=== PATIENT | male | born 1990 | race Caucasian/White ===

== ENCOUNTER 2017-02-09 17:45 | Emergency (ER) | payer OTHER ==
[~2017-02-09 17:45] MED LIST: Lidocaine 1% with EPINEPHrine 1:100,000 20 ML MDV INFILT ONE
[2017-02-09] MEDS ORDERED: Diphtheria,Pertussis(Acell),Tetanus Vaccine 0.5 ML SDV IM ONE (18:00)
[2017-02-09] MEDS ORDERED: Ketorolac 60 MG/2 ML SDV IM ONE (18:01)
--- NOTE | 2017-02-09 18:06 | EDM.PDOC ---
ED HPI GENERAL MEDICAL PROBLEM - General Chief Complaint: Head Injury Stated Complaint: HEAD LACERATION Time Seen by Provider: 02/09/17 17:55 Source of Information: Reports: Patient History Limitations: Reports: No Limitations - History of Present Illness INITIAL COMMENTS - FREE TEXT/NARRATIVE: 27 yo male stood up into a backhoe and lacerated the top of his head. No LOC. Minimal neck pain. No nausea. Mild GERARDO. Is not cerain about the timing of his last tetanus. Onset: Today Onset Date: 02/09/17 Onset Time: 17:30 Duration: Minutes: Location: Reports: Head Severity: Moderate Improves with: Reports: None Worsens with: Reports: None Context: Reports: Other (Stood up into a piece of heavy equipment.) Associated Symptoms: Reports: Other (mild GERARDO and mild neck stiffness.). Denies : Confusion, Nausea/Vomiting, Syncope Treatments [employer]: Reports: Other (see below) (none) - Related Data Allergies Allergy/AdvReac Type Severity Reaction Status Date / Time codeine Allergy Nausea and Verified 02/09/17 17:49 Vomiting Home Meds: Home Meds NK [No Known Home Meds] 02/09/17 [History] Social & Family History - Tobacco Use Smoking Status *Q: Never Smoker Second Hand Smoke Exposure: No - Caffeine Use Caffeine Use: Reports: Coffee - Alcohol Use Days Per Week of Alcohol Use: 1 Number of Drinks Per Day: 1 Total Drinks Per Week: 1 - Recreational Drug Use Recreational Drug Use: No ED ROS GENERAL - Review of Systems Review Of Systems: See Below Constitutional: Reports: No Symptoms HEENT: Reports: No Symptoms Respiratory: Reports: No Symptoms Cardiovascular: Reports: No Symptoms Endocrine: Reports: No Symptoms GI/Abdominal: Reports: No Symptoms. Denies: Nausea, Vomiting : Reports: No Symptoms Musculoskeletal: Reports: No Symptoms Skin: Reports: No Symptoms Neurological: Reports: Headache (mild) Psychiatric: Reports: No Symptoms ED EXAM, HEAD INJURY - Physical Exam Exam: See Below Exam Limited By: No Limitations General Appearance: Alert, WD/WN, No Apparent Distress Head: Normocephalic, Scalp Lacerations Nexus Criteria: No: Posterior, Midline Cervical Tenderness, Evidence of Intoxication, Altered Level of Consciousness, Focal Neurological Deficit, Painful Distraction Injuries Eyes: Bilateral Eye: EOMI, Normal Inspection, PERRL Ears: Normal External Exam, Normal Canal, Hearing Grossly Normal, Normal TMs Nose: Normal Inspection, Normal Mucousa, No Blood Throat/Mouth: Normal Inspection, Normal Lips, Normal Teeth, Normal Gums, Normal Oropharynx, Normal Voice, No Airway Compromise Neck: Non-Tender, Full Range of Motion, Normal Alignment, Normal Inspection Respiratory: No Respiratory Distress, Lungs Clear, Normal Breath Sounds, No Accessory Muscle Use Cardiovascular: Regular Rate, Rhythm Extremities: No Evidence of Injury Neurologic: coil strapper II-XII nml As Tested, No Motor/Sensory Deficits, Alert, Normal Mood/Affect, Oriented x 3 Skin: Normal Color, Warm/Dry - Bonner Coma Score Best Eye Response (Jaqueline): (4) Open Spontaneously Best Verbal Response (Bonner): (5) Oriented Best Motor Response (Bonner): (6) Obeys Commands Bonner Total: 15 Course - Vital Signs Text/Narrative:: Adacel IM, Toradol 60 mg IM Wound cleaned per nursing. Wound anesth with 9 ml of 1% lidocaine with epi. Closure with 13 x jay jay. Hair/face washed in sink. A pressure dressing was applied to the scalp wound( 6.5 cm in length, mostly linear) as there was some bleeding present still after cleaning. Last Recorded V/S: Last Vital Signs Temp 37.2 C 02/09/17 17:51 Pulse 82 02/09/17 17:51 Resp 16 02/09/17 17:51 BP 151/76 H 02/09/17 17:51 Pulse Ox 100 02/09/17 17:51 - Orders/Labs/Meds Orders: Active Orders 24 hr Category Date Time Status Vaccines to be Administered [RC] PER UNIT ROUTINE Care 02/09/17 18:01 Active Meds: Medications Discontinued Medications Generic Name Dose Route Start Last Admin Trade Name Freq PRN Reason Stop Dose Admin Diphtheria/Tetanus/Acell Pertussis 0.5 ml 02/09/17 18:00 02/09/17 18:23 Adacel IM 02/09/17 18:01 0.5 ml .ONCE ONE Administration Ketorolac Tromethamine 60 mg 02/09/17 18:01 02/09/17 18:22 Toradol IM 02/09/17 18:02 60 mg ONETIME ONE Administration Departure - Departure Time of Disposition: 19:10 Disposition: Home, Self-Care 01 Condition: Fair Clinical Impression: Scalp laceration Qualifiers: Encounter type: initial encounter Qualified Code(s): S01.01XA - Laceration without foreign body of scalp, initial encounter - Discharge Information Forms: ED Department Discharge - My Orders Last 24 Hours: My Active Orders 02/09/17 18:01 Vaccines to be Administered [RC] PER UNIT ROUTINE - Assessment/Plan Last 24 Hours: My Active Orders 02/09/17 18:01 Vaccines to be Administered [RC] PER UNIT ROUTINE
== END 2017-02-09 19:30 | disposition home or self-care (01) ==
LOC: FB.ED 17:45
DX: S01.01XA Laceration without foreign body of scalp, initial encounter (principal); Z88.5 Allergy status to narcotic agent; W22.8XXA Striking against or struck by other objects, initial encounter
CPT/HCPCS: 90471; 90715; 96372; 99282; A4217; J1885